=== PATIENT | female | born 1990 | race African-American/Black ===

== ENCOUNTER 2017-10-18 08:58 | Emergency (ER) | payer OTHER ==
[~2017-10-18] VITALS: Ht 172.7 cm; Wt 56.7 kg
[2017-10-18 12:33] LABS: Basophils # (auto) 0.1 uL; Basophils % (auto) 0.5 % (0.0-2.0); Eosinophils # (auto) 0 uL; Hemoglobin 12.5 g/dL (12.2-16.2); Lymphocytes # (auto) 0.8 uL; Lymphocytes % (auto) 5.5 % (10.0-50.0); Mean Corpuscular Hemoglobin 31.8 pg (28.0-32.0); Mean Corpuscular Hgb Conc. 33.8 g/dL (32.0-36.0); Mean Corpuscular Volume 94.2 fL (80.0-100.0); Monocytes # (auto) 0.4 uL; Neutrophils # (auto) 13.3 uL; Platelet Count (auto) 352 10^3/uL (140-450); Red Blood Cells 3.93 10^6/uL (4.0-5.20); Red Cell Distribution Width 13.9 % (11.8-14.3); White Blood Cell 14.6 10^3/uL (4.4-10.8)
[2017-10-18 12:50] LABS: Albumin 3.9 g/dL (3.4-5.0); BUN/Creatinine Ratio 12.7; Calcium 9.3 mg/dL (8.5-10.1); Potassium 3.3 mmol/L (3.5-5.1)
[2017-10-18 12:53] LABS: Bilirubin, Total 0.4 mg/dL (0.2-1.0); Total Protein 7.4 g/dL (6.4-8.2)
[2017-10-18] MEDS ORDERED: SODIUM CHLORIDE 0.9% 1,000 ML IVB ONE (14:14)
[2017-10-18] MEDS ORDERED: PROMETHAZINE HCL 25 MG/ML 1ML IV ONE (14:15)
[2017-10-18] MEDS ORDERED: POTASSIUM CHL 20 Meq TABLET PO ONE (15:45)
[2017-10-18 15:55] VITALS: BP 103/55
[2017-10-18 17:34] LABS: Urine Bacteria FEW /hpf (None Seen); Urine Blood Negative /uL (Negative); Urine Mucus FEW (None Seen); Urine Specific Gravity 1.014 (1.001-1.035); Urine WBC 31 /hpf (0 - 5)
== END 2017-10-18 17:51 | disposition home or self-care (01) ==
LOC: EDBD 08:58 → ER 08:58
DX: O21.0 Mild hyperemesis gravidarum (principal); O23.41 Unspecified infection of urinary tract in pregnancy, first trimester; Z3A.12 12 weeks gestation of pregnancy; O99.321 Drug use complicating pregnancy, first trimester; F12.10 Cannabis abuse, uncomplicated
CPT/HCPCS: 36415; 76801; 80053; 81001; 82010; 84702; 85025; 94761; 96361; 96374; 99285; J2550

== ENCOUNTER 2020-04-06 12:08 | Inpatient (IN) | payer OTHER ==
[~2020-04-06] VITALS: Ht 172.7 cm; Wt 59.2 kg
[2020-04-06] MEDS ORDERED: SODIUM CHLORIDE 0.9% 1,000 ML IVB ONE (12:15)
[2020-04-06] MEDS ORDERED: SODIUM CHLORIDE 0.9% 1,000 ML IV ONE (12:15)
[2020-04-06] MEDS ORDERED: ASCORBIC ACID 500 MG TAB PO ONE (13:00)
[2020-04-06] MEDS ORDERED: cefTRIAXone 1GM/50ML D5W 50 ML IV ONE (13:00)
[2020-04-06] MEDS ORDERED: AZITHROMYCIN 500MG/ 250ML 250 ML IV ONE (13:00)
[2020-04-06] MEDS ORDERED: ZINC SULFATE 220mg CAP or TAB PO ONE (13:00)
[2020-04-06 13:12] LABS: Basophils # (auto) 0 10 ^3/uL (0-0.2); Basophils % (auto) 0.3 % (0.0-2.0); Eosinophils # (auto) 0 10 ^3/uL (0-0.8); Eosinophils % (auto) 0.4 % (0.0-7.0); Hematocrit 38.4 % (36.0-46.0); Hemoglobin 12.7 g/dL (12.2-16.2); Lymphocytes # (auto) 1.1 10 ^3/uL (0.4-5.4); Lymphocytes % (auto) 8.9 % (10.0-50.0); Mean Corpuscular Hemoglobin 31.6 pg (28.0-32.0); Mean Corpuscular Hgb Conc. 33.2 g/dL (32.0-36.0); Mean Corpuscular Volume 95.2 fL (80.0-100.0); Monocytes # (auto) 0.7 10 ^3/uL (0-1.3); Monocytes % (auto) 5.4 % (0.0-12.0); Neutrophils # (auto) 10.4 10 ^3/uL (1.6-8.6); Platelet Count (auto) 290 10^3/uL (140-450); Red Blood Cells 4.03 10^6/uL (4.0-5.20); Red Cell Distribution Width 13.5 % (11.8-14.3); White Blood Cell 12.2 10^3/uL (4.4-10.8)
[2020-04-06] MEDS ORDERED: DexAMETHasone SOD PHOS 10MG/1ML VIAL INJ IV ONE (13:15)
[2020-04-06] MEDS ORDERED: hydrOXYchloroQUINE SULFATE 200 MG TAB PO ONE (13:15)
[2020-04-06 13:18] LABS: Alanine Aminotransferase 20 U/L (13-56); Albumin 3.6 g/dL (3.4-5.0); Anion Gap 5 (5-15); Aspartate Aminotransferase 12 U/L (15-37); BUN/Creatinine Ratio 9.9; Blood Urea Nitrogen 8 mg/dL (7-18); Calcium 7.9 mg/dL (8.5-10.1); Carbon Dioxide 22 mmol/L (21-32); Chloride 115 mmol/L (98-107); GFR African American 106 mL/min; GFR Non-African American 88 mL/min; Glucose 96 mg/dL (74-106); Lipase 103 U/L (73-393); Potassium 3.5 mmol/L (3.5-5.1); Sodium 142 mmol/L (136-145)
[2020-04-06 13:23] LABS: Alkaline Phosphatase 41 U/L (45-117); Bilirubin, Total 0.5 mg/dL (0.2-1.0); Total Protein 6.7 g/dL (6.4-8.2)
[2020-04-06] MEDS ORDERED: MORPHINE SULF INJ 2 MG/ML SYRINGE 1ML IV PRN ×2 (14:30)
[2020-04-06] MEDS ORDERED: HYDROcodone-ACET 5/325MG TAB PO PRN (14:30)
[2020-04-06] MEDS ORDERED: NITROGLYCERIN 0.4 MG SL TAB SL PRN (14:30)
[2020-04-06] MEDS ORDERED: ACETAMINOPHEN 500 MG TAB PO PRN ×2 (14:30)
[2020-04-06] MEDS: metroNIDAZOLE 500 MG TAB PO SCH ×2 (15:30→21:25)
[2020-04-06] MEDS: ONDANSETRON HCL 4 MG/2 ML VIAL IV PRN (16:26)
--- NOTE | 2020-04-06 19:50 | NUR ---
Telemetry admit from [facility] admitted to Telemetry unit after SBAR received. Patient oriented to Serina muñoz RN, unit, room, bed, and unit policies regarding patient care and visiting hours. Patient now on continuous telemetry monitoring, tele box # [id number] and telemetry reading on arrival to unit is SB50. Patient placed on bedside oxygen, weighed by bed scale and encouraged to call if they need something. All questions and concerns addressed, patient verbalized understanding. Note: Came per wheelchair, placed in the bed comfortably, vital signs checked, given snack sand witch as requested.
[2020-04-06 20:00] VITALS: BP 110/70
[2020-04-06 20:20] LABS: Urine Bacteria NONE SEEN /hpf (None Seen); Urine Blood 2+ /uL (Negative); Urine Mucus FEW (None Seen); Urine Specific Gravity 1.023 (1.001-1.035); Urine WBC 2 /hpf (0 - 5)
[2020-04-06 20:45] LABS: Alcohol, Urine < 3.0 mg/dL (0-10); Amphetamine Screen, Urine NEGATIVE (NEGATIVE); Barbiturate Scree,Urine NEGATIVE (NEGATIVE); Benzodiazephine Screen, Urine NEGATIVE (NEGATIVE); Cannabinoid Screen, Urine POSITIVE (NEGATIVE); Cocaine Screen, Urine NEGATIVE (NEGATIVE); Opiate Scree,Urine NEGATIVE (NEGATIVE); Phencyclidine Screen, Urine NEGATIVE (NEGATIVE)
[2020-04-06] MEDS: DOXYCYCLINE 100 MG TAB/CAP PO SCH (21:25)
[2020-04-06 22:00] VITALS: BP 110/61
--- NOTE | 2020-04-07 02:42 | NUR ---
Sister Faye anderson wants some updates.
[2020-04-07] MEDS: metroNIDAZOLE 500 MG TAB PO SCH ×3 (05:18→21:20)
[2020-04-07 05:44] LABS: Basophils # (auto) 0 10 ^3/uL (0-0.2); Basophils % (auto) 0.1 % (0.0-2.0); Eosinophils # (auto) 0 10 ^3/uL (0-0.8); Hematocrit 36.5 % (36.0-46.0); Hemoglobin 12.3 g/dL (12.2-16.2); Lymphocytes # (auto) 0.8 10 ^3/uL (0.4-5.4); Mean Corpuscular Hemoglobin 32.3 pg (28.0-32.0); Mean Corpuscular Hgb Conc. 33.7 g/dL (32.0-36.0); Mean Corpuscular Volume 95.9 fL (80.0-100.0); Monocytes # (auto) 0.5 10 ^3/uL (0-1.3); Monocytes % (auto) 5.5 % (0.0-12.0); Neutrophils # (auto) 7.5 10 ^3/uL (1.6-8.6); Neutrophils % (auto) 85.4 % (37.0-80.0); Platelet Count (auto) 277 10^3/uL (140-450); Red Cell Distribution Width 13.5 % (11.8-14.3); White Blood Cell 8.8 10^3/uL (4.4-10.8)
[2020-04-07 05:56] VITALS: BP 111/68
[2020-04-07 05:58] LABS: Albumin 3.3 g/dL (3.4-5.0); Potassium 3.5 mmol/L (3.5-5.1)
[2020-04-07 06:01] LABS: BUN/Creatinine Ratio 9.9
[2020-04-07 06:04] LABS: Bilirubin, Total 0.3 mg/dL (0.2-1.0); Total Protein 6.4 g/dL (6.4-8.2)
--- NOTE | 2020-04-07 07:20 | NUR ---
Report given to Estrellita Doe, patient is resting no distress.
[2020-04-07 08:00] VITALS: BP 114/58
[2020-04-07 09:00] VITALS: BP 114/58
[2020-04-07] MEDS: DOXYCYCLINE 100 MG TAB/CAP PO SCH ×2 (09:21→21:20)
[2020-04-07] MEDS: FAMOTIDINE 20 MG TAB PO SCH (09:21)
[2020-04-07] MEDS: CHOLECALCIFEROL (VITD3) 1,000UNIT=25mCg TAB PO SCH (09:22)
[2020-04-07] MEDS: ENOXAPARIN SOD 40 MG/0.4 ML SYRINGE SC SCH (09:22)
[2020-04-07] MEDS ORDERED: ZINC SULFATE 220mg CAP or TAB PO SCH (10:00)
[2020-04-07] MEDS ORDERED: ASCORBIC ACID 1,000 MG TAB PO SCH (10:00)
[2020-04-07 13:00] VITALS: BP 105/60
--- NOTE | 2020-04-07 13:50 | NUR ---
DR ALEXANDER BEDSIDE WITH PATIENT DISCUSSING PLAN OF CARE. ORDERS RECEIVED AND CARRIED OUT
--- NOTE | 2020-04-07 13:50 | NUR ---
PATIENT REQUEST TO SMOKE PATIENT IS REQUESTING TO GO DOWN TO SMOKE. PER DR ALEXANDER, IF THE PATIENTS "HEART RATE CAN SUSTAIN ABOVE 60 BPM FOR OVER 30 MINUTES, HE WOULD BE OK WITH HER GOING DOWN TO SMOKE".
[2020-04-07] MEDS ORDERED: ACETAMINOPHEN 500 MG TAB PO PRN (14:00)
--- NOTE | 2020-04-07 14:15 | NUR ---
SPOKE TO DR HARP REGARDING CARDIOLOGY CONSULT. NO ORDERS RECEIVED.
[2020-04-07] MEDS: SODIUM CHLORIDE 0.9% 1,000 ML IV SCH (14:16)
[2020-04-07] MEDS: NICOTINE 21MG/24 HR TOPICAL PATCH TD SCH (14:17)
[2020-04-07 17:00] VITALS: BP 120/63
--- NOTE | 2020-04-07 17:10 | NUR ---
PATIENTS MOTHER CALLED. UPDATE PROVIDED AFTER PASSWORD WAS CONFIRMED. MOTHER WANTED TO COME AND SEE PATIENT IN HOSPITAL TOMORROW. I INFORMED HER VISITORS ARE NOT ALLOWED AT THIS TIME. SHE SAID SHE WILL JUST GO TO THE LOBBY AND HER DAUGHTER WILL COME DOWN. I ASKED THE MOTHER TO PLEASE CALL TOMORROW BEFORE SHE PLANS TO COME FOR PATIENT AVAILABILITY FIRST.
--- NOTE | 2020-04-07 20:00 | NUR ---
Opening Shift Note Assumed care of patient, awake and alert. No S/S of distress/SOB or pain. Instructed on POC and to call for assist PRN, will continue to monitor for changes Q1hr and PRN.And at 2024 signed the AMA to smoke and went down.
[2020-04-07] MEDS: ALPRAZolam 0.25 MG TAB PO PRN (21:21)
--- NOTE | 2020-04-07 21:21 | NUR ---
Patient is emotional cried, stayed with the patient and comfort her, no shortness of breath , oxygen saturation without oxygen is 100%, blood pressure is 104/57, given Xanax 0.5mg.p.o and applied oxygen for comfort. Addendum: 04/07/20 at 2300 by Serina Pedroza RN given 0.25mg.p.o Xanax not o.5mg.
[2020-04-07 22:00] VITALS: BP 104/57
[2020-04-08] MEDS: SODIUM CHLORIDE 0.9% 1,000 ML IV SCH ×2 (03:54→17:24)
[2020-04-08 05:35] LABS: Basophils # (auto) 0 10 ^3/uL (0-0.2); Basophils % (auto) 0.2 % (0.0-2.0); Eosinophils # (auto) 0 10 ^3/uL (0-0.8); Eosinophils % (auto) 0.3 % (0.0-7.0); Hematocrit 34.8 % (36.0-46.0); Hemoglobin 11.8 g/dL (12.2-16.2); Lymphocytes # (auto) 2.6 10 ^3/uL (0.4-5.4); Lymphocytes % (auto) 28.7 % (10.0-50.0); Mean Corpuscular Hemoglobin 32.2 pg (28.0-32.0); Mean Corpuscular Hgb Conc. 33.8 g/dL (32.0-36.0); Mean Corpuscular Volume 95.3 fL (80.0-100.0); Monocytes # (auto) 0.7 10 ^3/uL (0-1.3); Monocytes % (auto) 7.2 % (0.0-12.0); Neutrophils # (auto) 5.8 10 ^3/uL (1.6-8.6); Neutrophils % (auto) 63.6 % (37.0-80.0); Platelet Count (auto) 264 10^3/uL (140-450); Red Blood Cells 3.65 10^6/uL (4.0-5.20); Red Cell Distribution Width 13.4 % (11.8-14.3); White Blood Cell 9.1 10^3/uL (4.4-10.8)
[2020-04-08] MEDS: metroNIDAZOLE 500 MG TAB PO SCH ×3 (05:37→22:17)
[2020-04-08 05:53] LABS: Albumin 3.4 g/dL (3.4-5.0); Calcium 8.1 mg/dL (8.5-10.1); Magnesium 2.1 mg/dL (1.6-2.6); Potassium 3.2 mmol/L (3.5-5.1)
[2020-04-08 05:55] LABS: BUN/Creatinine Ratio 14.8; Bilirubin, Total 0.4 mg/dL (0.2-1.0); Phosphorus 2.2 mg/dL (2.5-4.90); Total Protein 5.8 g/dL (6.4-8.2)
[2020-04-08 06:00] VITALS: BP 119/72
--- NOTE | 2020-04-08 07:24 | NUR ---
Opening Shift Note Assumed care of patient, awake and alert. No S/S of distress/SOB or pain. Instructed on POC and to call for assist PRN, will continue to monitor for changes Q1hr and PRN.
--- NOTE | 2020-04-08 07:25 | NUR ---
Care report given to Tawanna Lewis, patient is resting no distress.
[2020-04-08] MEDS ORDERED: POTASSIUM CHL 20 Meq TABLET PO ONE (08:30)
[2020-04-08] MEDS: ONDANSETRON HCL 4 MG/2 ML VIAL IV PRN (09:19)
[2020-04-08] MEDS: ENOXAPARIN SOD 40 MG/0.4 ML SYRINGE SC SCH (10:00)
[2020-04-08] MEDS: NICOTINE 21MG/24 HR TOPICAL PATCH TD SCH (10:00)
[2020-04-08] MEDS: DOXYCYCLINE 100 MG TAB/CAP PO SCH ×2 (10:11→22:18)
[2020-04-08] MEDS: CHOLECALCIFEROL (VITD3) 1,000UNIT=25mCg TAB PO SCH (10:11)
[2020-04-08] MEDS: FAMOTIDINE 20 MG TAB PO SCH (10:13)
[2020-04-08 10:23] LABS: Cholesterol 98 mg/dL (< 200); HDL Cholesterol 35 mg/dL (40-59); LDL Cholesterol 59 mg/dL (< 100); Triglycerides 49 mg/dL (< 150)
[2020-04-08] MEDS: ALPRAZolam 0.25 MG TAB PO PRN ×2 (11:48→20:04)
[2020-04-08] MEDS: SUCRALFATE 1 GM/10 ML ORAL SUSP PO SCH ×3 (11:54→22:17)
[2020-04-08] MEDS: PANTOPRAZOLE 40 MG TAB PO SCH ×2 (11:54→22:18)
[2020-04-08 12:30] VITALS: BP_SYST 110; BP_SYST 120; BP_SYST 124; BP_DIAS 68; BP_DIAS 69
--- NOTE | 2020-04-08 15:34 | NUR ---
ORTHOSTATIC VITALS Addendum: 04/08/20 at 1535 by Ann Charles RN LAYING DOWN HR 40 BP 124/68 SITTING UP HR 43 BP 120/68 STANDING UP HR 50 BP 110/69
[2020-04-08 17:00] VITALS: BP 124/78
--- NOTE | 2020-04-08 20:00 | NUR ---
RECEIVED PATIENT FROM DAY SHIFT RN. PATIENT RESTING IN BED. NO S/S OF DISTRESS NOTED. DENIED PAIN FOR NOW. PATIENT WAS CRYING FOR MISSING HER KIDS AND REQUESTED HER ANXIETY MEDICATION. WILL COME BACK TO GIVE HER LATER. PATIENT C/O SORE ON IV SITE. WILL INSERT A NEW IV ACCESS LATER. REINFORCED NPO AFTER MIDNIGHT FOR PROCEDURE TOMORROW. PATIENT VERBALIZED UNDERSTANDING. POC INSTRUCTED AND ENCOURAGED PATIENT TO CALL FOR OIL TESTER IF NEEDED. BED IN LOWEST POSITION WITH SIDE RAILS UP X 2. CALL CORTES WITHIN REACH. ALARM ON. CONTINUE TO MONITOR FOR CHANGES Q1H AND PRN.
--- NOTE | 2020-04-08 20:20 | NUR ---
2ND IV insertion IV access obtained, via clean sterile technique by inserting [22] gauge catheter at [RFA] after [1] attempt(s). IV secured properly. No trauma to site. Patient tolerated well. NOTE: []
[2020-04-08 22:00] VITALS: BP 137/84
--- NOTE | 2020-04-09 00:37 | NUR ---
NPO FROM NOW. WATER AND FOOD REMOVED FROM PATIENT'S BEDSIDE. CONTINUE TO MONITOR.
[2020-04-09] MEDS: SODIUM CHLORIDE 0.9% 1,000 ML IV SCH (00:55)
[2020-04-09] MEDS: ONDANSETRON HCL 4 MG/2 ML VIAL IV PRN ×2 (00:55→10:15)
--- NOTE | 2020-04-09 03:37 | NUR ---
PATIENT SLEEPING. NO S/S OF DISTRESS AND NAUSEA NOTED. CONTINUE TO MONITOR.
[2020-04-09 05:49] VITALS: BP 106/67
[2020-04-09] MEDS: metroNIDAZOLE 500 MG TAB PO SCH ×2 (05:54→14:00)
[2020-04-09] MEDS: SUCRALFATE 1 GM/10 ML ORAL SUSP PO SCH ×2 (05:54→11:30)
--- NOTE | 2020-04-09 06:02 | NUR ---
PATIENT SLEEPING. NO S/S OF DISTRESS NOTED. NPO FOR NOW. CONTINUE TO MONITOR.
--- NOTE | 2020-04-09 07:30 | NUR ---
Opening Shift Note Assuming care of patient at this time. Patient is awake and alert. Patient denies pain. Patient shows no signs or symptoms of distress or shortness of breath. Instructed patient on the plan of care for today and to call for assistance as needed. Call light within reach. Will continue to round hourly and as needed.
[2020-04-09 08:48] VITALS: BP 133/84
[2020-04-09 09:00] VITALS: BP 115/77
[2020-04-09] MEDS: CHOLECALCIFEROL (VITD3) 1,000UNIT=25mCg TAB PO SCH (10:00)
[2020-04-09] MEDS: PANTOPRAZOLE 40 MG TAB PO SCH (10:00)
[2020-04-09] MEDS: ENOXAPARIN SOD 40 MG/0.4 ML SYRINGE SC SCH (10:00)
[2020-04-09] MEDS: DOXYCYCLINE 100 MG TAB/CAP PO SCH (10:00)
[2020-04-09] MEDS: NICOTINE 21MG/24 HR TOPICAL PATCH TD SCH (10:00)
[2020-04-09] MEDS ORDERED: PANT40TA2 PO (11:35)
[2020-04-09] MEDS ORDERED: SUCR1TAB22 PO (11:35)
[2020-04-09 13:03] VITALS: BP 115/77
--- NOTE | 2020-04-09 14:07 | NUR ---
Discharge Discharge instructions given as ordered. Encourage to follow up with PMD as instructed. New prescriptions sent to patient's preferred pharmacy. All questions and concerns addressed. Patient verbalized understanding. Medication reconciliation form completed and copy given to patient. IVs removed with catheter intact, pressure dressing applied. Telemetry unit returned to ICU. Patient ambulated to vehicle via wheelchair with all personal belongings. 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 No distress noted at time of departure.
== END 2020-04-09 14:15 | disposition home or self-care (01) | DRG 241 ==
LOC: EDBD 12:08 → ER 12:08 → TELE 12:09 → TELE-WESTW 19:50
PROVIDERS: ADMIT Nurse Practitioner Acute Care; ATTEND Internal Medicine
DX: K29.70 Gastritis, unspecified, without bleeding (principal); R64 Cachexia; R65.10 Systemic inflammatory response syndrome (SIRS) of non-infectious origin without acute organ dysfunction; A59.9 Trichomoniasis, unspecified; E87.6 Hypokalemia; D72.829 Elevated white blood cell count, unspecified; F12.10 Cannabis abuse, uncomplicated; R00.1 Bradycardia, unspecified; F17.210 Nicotine dependence, cigarettes, uncomplicated; J45.909 Unspecified asthma, uncomplicated; Z72.51 High risk heterosexual behavior; Z71.6 Tobacco abuse counseling; Z20.828 Contact with and (suspected) exposure to other viral communicable diseases; Z82.5 Family history of asthma and other chronic lower respiratory diseases; Z82.49 Family history of ischemic heart disease and other diseases of the circulatory system; Z68.1 Body mass index [BMI] 19.9 or less, adult
CPT/HCPCS: 36415; 71045; 74176; 80053; 80061; 80307; 81001; 82533; 82728; 83605; 83615; 83690; 83735; 84100; 84443; 84484; 85025; 85379; 86141; 86703; 87040; 87070; 87081; 87086; 87205; 87804; 87880; 93005; 93017; 93306; G0378; J0696; J1100; J2405

== ENCOUNTER 2020-04-14 17:44 | Emergency (ER) | payer OTHER ==
[~2020-04-14] VITALS: Ht 170.2 cm; Wt 54.9 kg
[~2020-04-14 17:44] MED LIST: PANT40TA2 PO; SUCR1TAB22 PO
[2020-04-14 20:49] VITALS: BP 101/57
[2020-04-14 20:53] LABS: Urine WBC None Seen /hpf (0 - 5)
[2020-04-14] MEDS ORDERED: ALBUTEROL SULF 2.5 MG/0.5ML(0.5%) NEB SOLN NEB ONE (21:00)
[2020-04-14] MEDS ORDERED: IPRATROPIUM BROM 0.5 MG/2.5ML INH SOL NEB ONE (21:00)
[2020-04-14 21:02] LABS: Urine Bacteria NONE SEEN /hpf (None Seen); Urine Blood Negative /uL (Negative); Urine Specific Gravity 1.002 (1.001-1.035)
[2020-04-14 21:57] LABS: Basophils # (auto) 0 10 ^3/uL (0-0.2); Basophils % (auto) 0.3 % (0.0-2.0); Eosinophils # (auto) 0.1 10 ^3/uL (0-0.8); Eosinophils % (auto) 1.2 % (0.0-7.0); Hematocrit 43.7 % (36.0-46.0); Hemoglobin 14.6 g/dL (12.2-16.2); Lymphocytes # (auto) 2.2 10 ^3/uL (0.4-5.4); Mean Corpuscular Hemoglobin 31.7 pg (28.0-32.0); Mean Corpuscular Hgb Conc. 33.3 g/dL (32.0-36.0); Mean Corpuscular Volume 95.1 fL (80.0-100.0); Monocytes # (auto) 0.9 10 ^3/uL (0-1.3); Monocytes % (auto) 7.5 % (0.0-12.0); Neutrophils # (auto) 8.2 10 ^3/uL (1.6-8.6); Platelet Count (auto) 365 10^3/uL (140-450); Red Cell Distribution Width 13.7 % (11.8-14.3); White Blood Cell 11.4 10^3/uL (4.4-10.8)
[2020-04-14 22:19] LABS: Albumin 4.2 g/dL (3.4-5.0); BUN/Creatinine Ratio 10.5; Calcium 8.7 mg/dL (8.5-10.1); Potassium 3.5 mmol/L (3.5-5.1)
[2020-04-14 22:22] LABS: Bilirubin, Total 0.5 mg/dL (0.2-1.0); Total Protein 7.6 g/dL (6.4-8.2)
== END 2020-04-14 23:38 | disposition home or self-care (01) ==
LOC: ER 17:44 → EDBD 17:44 → ER 23:38
DX: J18.9 Pneumonia, unspecified organism (principal); F41.9 Anxiety disorder, unspecified; R06.02 Shortness of breath; F17.210 Nicotine dependence, cigarettes, uncomplicated; Z32.02 Encounter for pregnancy test, result negative
CPT/HCPCS: 36415; 71250; 80053; 81001; 81025; 85025; 94640; 99284; J7644

== ENCOUNTER 2020-04-25 13:03 | Emergency (ER) | payer OTHER ==
[~2020-04-25] VITALS: Ht 167.6 cm; Wt 63.5 kg
[~2020-04-25 13:03] MED LIST changes: -SUCR1TAB22 PO; +SUCR1TAB38 PO
[2020-04-25 14:24] LABS: Basophils # (auto) 0.1 10 ^3/uL (0-0.2); Basophils % (auto) 0.8 % (0.0-2.0); Eosinophils # (auto) 0.1 10 ^3/uL (0-0.8); Eosinophils % (auto) 1.5 % (0.0-7.0); Hematocrit 42.8 % (36.0-46.0); Hemoglobin 14.4 g/dL (12.2-16.2); Lymphocytes # (auto) 1.6 10 ^3/uL (0.4-5.4); Lymphocytes % (auto) 24.7 % (10.0-50.0); Mean Corpuscular Hemoglobin 31.7 pg (28.0-32.0); Mean Corpuscular Hgb Conc. 33.7 g/dL (32.0-36.0); Mean Corpuscular Volume 94.2 fL (80.0-100.0); Monocytes # (auto) 0.4 10 ^3/uL (0-1.3); Monocytes % (auto) 6.2 % (0.0-12.0); Neutrophils # (auto) 4.4 10 ^3/uL (1.6-8.6); Neutrophils % (auto) 66.8 % (37.0-80.0); Platelet Count (auto) 370 10^3/uL (140-450); Red Blood Cells 4.54 10^6/uL (4.0-5.20); Red Cell Distribution Width 13.5 % (11.8-14.3); White Blood Cell 6.6 10^3/uL (4.4-10.8)
[2020-04-25 14:49] LABS: Albumin 4.7 g/dL (3.4-5.0); Calcium 9.4 mg/dL (8.5-10.1); Chloride 112 mmol/L (98-107); Potassium 3.7 mmol/L (3.5-5.1); Sodium 139 mmol/L (136-145)
[2020-04-25 14:57] LABS: Alanine Aminotransferase 20 U/L (13-56); Alkaline Phosphatase 43 U/L (45-117); Anion Gap 5 (5-15); Aspartate Aminotransferase 11 U/L (15-37); BUN/Creatinine Ratio 11.9; Bilirubin, Total 0.5 mg/dL (0.2-1.0); Blood Urea Nitrogen 10 mg/dL (7-18); Carbon Dioxide 22 mmol/L (21-32); GFR African American 102 mL/min; GFR Non-African American 84 mL/min; Glucose 94 mg/dL (74-106); Magnesium 2.5 mg/dL (1.6-2.6); Total Protein 8.3 g/dL (6.4-8.2)
[2020-04-25 16:01] VITALS: BP 124/82
== END 2020-04-25 16:03 | disposition home or self-care (01) ==
LOC: EDBD 13:03 → ER 13:03
DX: R07.89 Other chest pain (principal); R09.1 Pleurisy
CPT/HCPCS: 36415; 71045; 80053; 83735; 84484; 85025; 93005